=== PATIENT | female | born 1950 | race Caucasian/White ===

== ENCOUNTER → 2018-07-17 09:17 | Outpatient (CLI) | payer MEDICARE, SELFPAY ==
--- NOTE | 2018-07-17 09:21 | MM_ITS ---
MM Dig screening mamm BI w/CAD ORDERING PHYSICIAN : Jaun Brizuela MD PATIENT AGE: 67 years GENDER: Female COMPARISON: Previous screening bilateral mammogram August 2016, April 2014, April 2013 INDICATION: ITS.REASON: SCREENING noncontributory family history No hormones. No new complaints. Previous benign excisional biopsy left breast. TECHNIQUE: Standard CC and MLO images were obtained. R2 CAD reviewed. . Additional nipple profile cc and MLO view right breast FINDINGS: Low-density breast MRI scanner replacement. No significant change since prior studies. No dominant mass nor suspicious calcifications in either breast. The tiny nodular density at the central right breast is stable.. Ongoing Bilateral follow-up in one year recommended IMPRESSION: ... Stable negative mammogram. No significant new areas of concern. Fatty replacement bilaterally BI-RADS Category: 1 Negative RECOMMENDED FOLLOW-UP: 1YR 1 YEAR FOLLOW-UP (A letter has been sent to the patient regarding results of the study.)
--- NOTE | 2018-07-17 09:21 | XR_ITS ---
DEXA SCAN.-BONE DENSITY STUDY HIPS AND LUMBAR SPINE HISTORY: Postmenopausal female 67-year-old female hysterectomy. Diabetes TECHNIQUE: DEXA scan hip and lumbar spine The most complete data summary and color graphic presentation of the today's ( and any prior ) DEXA findings are available in PACS. Definition and treatment guidelines included. COMPARISON: None listed LUMBAR SPINE: Normal bone density overall L2 vertebral body demonstrates the lowest T score = 2.1 with BMD1.453 g/cm sq Overall mean lumbar L1-L4 T score = 2.8 with BMD1.513 g/cm sq . . HIPS: . Normal bone density bilaterally Femoral neck density is best predictor of hip fracture risk . Left femoral neck demonstrates the lowest T score 0.2 with BMD1.065 g/cm sq . Right femoral Neck T score 0.3 with BMD 1.087 Averaging all region yields today's Hip Mean T score 1.2 with BMD1.164 g/cm sq . IMPRESSION 1. LUMBAR SPINE: Normal/of abnormal bone density throughout all levels L-spine. Overall T score 2.8 at lumbar spine 2. HIPS: Normal bone density hips bilaterally Overall mean T score 1.2 at hips WHO criteria for post-menopausal, Women: Normal: T-score at or above -1 SD Osteopenia: T-score between -1 and -2.5 SD Osteoporosis: T-score at or below -2.5 SD
== END ==
PROVIDERS: Family Provider Family Medicine; PCP Family Medicine; Visit Provider Family Medicine
DX: Z12.31 Encounter for screening mammogram for malignant neoplasm of breast (principal); Z78.0 Asymptomatic menopausal state
CPT/HCPCS: 77067; 77080

== ENCOUNTER → 2019-09-13 10:47 | Outpatient (CLI) | payer MEDICARE, SELFPAY ==
--- NOTE | 2019-09-13 10:49 | MM_ITS ---
PROCEDURE: MM DIG SCREENING MAMM BI W/CAD Patient Age:69Y CLINICAL INDICATION: SCREENING Routine screening mammogram. No hormones but no new complaints. Noncontributory family history. Low-density breast with generalized fatty replacement COMPARISON: DIGMAMMS MAMMOGRAM SCREEN-[facility]IGHWAY ENGINEER N/C from 11/07/2006 DIGMAMMS MAMMOGRAM SCREEN-HIGHWAY ENGINEER N/C from 01/26/2008 [facility] DIGITAL MAMM-SCREEN BILATERAL from 09/15/2010 [facility] DIG MAMM-SCREEN VENITA from 04/30/2013 [facility] DIG MAMM-SCREEN VENITA from 05/06/2014 [facility] DIG MAMM-SCREEN VENITA from 09/02/2016 [facility] MM Dig screening mamm BI w/CAD from 07/17/2018 TECHNIQUE: Standard CC and MLO images were obtained. R2 CAD reviewed. Additional nipple profile CC views and MLO views bilaterally included FINDINGS: . Diffuse fatty replacement.. No dominant nor suspicious mass. No significant changes since previous studies. Bilateral follow-up 1 year adequate. Stable small benign appearing densities bilaterally with benign-appearing calcification. Follow-up 1 year adequate IMPRESSION: Stable bilateral mammogram. No areas of significant concern Diffuse fatty replacement/low-density breast . Bilateral follow-up the 1 year recommended BI-RAD Category : 2-benign findings The FOLLOW-UP: 1YR 1 Year Follow-up (A letter has been sent to the patient regarding results of the study.) Dictated by: Brandon Thompson MD 09/14/2019 10:09 Electronically signed by Brandon Thompson MD in [place] 09/14/2019 10:09
== END ==
PROVIDERS: PCP Family Medicine; Visit Provider Family Medicine
DX: Z12.31 Encounter for screening mammogram for malignant neoplasm of breast (principal)
CPT/HCPCS: 77067

== ENCOUNTER → 2020-06-06 09:22 | Outpatient (CLI) | payer MEDICARE, SELFPAY ==
[2020-06-06 09:43] LABS: Basophils % 0.5 % (0.1-2.0); Eosinophils # 0.4 K/mm3 (0.0-0.4); Eosinophils % 6.8 % (0.1-12.0); Hematocrit 39.4 % (37.0-47.0); Hemoglobin 13.1 g/dL (12.2-16.2); Lymphocytes # 2.3 K/mm3 (0.7-4.5); Lymphocytes % 36.6 % (10-50); Mean Corpuscular HGB Conc 33.4 g/dL (31.8-35.4); Mean Corpuscular Volume 92.9 fl (81-99); Mean Platelet Volume 7.1 fl (7.4-10.4); Monocytes # 0.3 K/mm3 (0.1-1.0); Monocytes % 5.1 % (1.7-9.3); Neutrophils # 3.1 K/mm3 (1.8-7.8); Neutrophils % 51.1 % (37.0-80.0); Platelet Count 184 K/mm3 (142-424); Red Blood Count 4.24 M/mm3 (4.20-5.40); Red Cell Distribution Width 14.1 % (11.5-17.5); White Blood Count 6.2 K/mm3 (4.8-10.8)
[2020-06-06 10:58] LABS: Alanine Aminotransferase 60 U/L (12-78); Albumin Level 4.2 g/dl (3.5-5.0); Albumin/Globulin Ratio 1.5 (1.1-1.8); Alkaline Phosphatase 131 U/L (38-126); Anion Gap 14.5 mEq/L (5-15); Aspartate Amino Transferase 74 U/L (14-36); Bilirubin,Total 0.7 mg/dl (0.2-1.3); Blood Urea Nitrogen 12 mg/dl (7-17); Calcium 9.8 mg/dl (8.4-10.2); Carbon Dioxide 28 mmol/L (22.0-30.0); Chloride 100 mmol/L (98-107); Chol/HDL Ratio 5.4 (1-3.5); Cholesterol 244 mg/dl (140-200); Estimated Glomerular Filt Rate 100 ml/min (>60); GFR (African American) 121 ML/MIN (>60); Globulin 2.8 g/dL (1.3-3.2); Glucose 326 mg/dl (74-100); HDL Cholesterol 45 mg/dl (40-60); Potassium 4.5 mmoL/L (3.5-5.1); Sodium 138 mmol/L (136-145); Triglycerides 372 mg/dl (30-150); VLDL Cholesterol 74 mg/dL (0-40)
[2020-06-06 11:09] LABS: Direct LDL Cholesterol 131.25 mg/dL (100-129)
[2020-06-06 11:15] LABS: 25-OH Vitamin D, Total 24.2 ng/mL (30-100)
[2020-06-06 11:29] LABS: Thyroid Stimulating Hormone 2.77 uIU/mL (0.465-4.68)
[2020-06-06 11:36] LABS: Hemoglobin A1C 9.4 % (4.0-6.0)
== END ==
PROVIDERS: Visit Provider Family Medicine
DX: E11.9 Type 2 diabetes mellitus without complications (principal); E78.5 Hyperlipidemia, unspecified; E55.9 Vitamin D deficiency, unspecified; Z79.4 Long term (current) use of insulin
CPT/HCPCS: 36415; 80053; 80061; 82306; 83036; 84443; 85025

== ENCOUNTER → 2020-09-01 10:20 | Outpatient (CLI) | payer MEDICARE, SELFPAY ==
[2020-09-01 13:52] LABS: Coronavirus 19 IgG Antibody Negative (Negative); Coronavirus 19 IgM Antibody Negative (Negative)
== END ==
PROVIDERS: Visit Provider Ophthalmology
DX: Z01.818 Encounter for other preprocedural examination (principal); Z98.42 Cataract extraction status, left eye
CPT/HCPCS: 36415; 86328

== ENCOUNTER 2020-09-02 06:20 | Day surgery (SDC) | payer MEDICARE, SELFPAY ==
[2020-08-26 13:35] VITALS: BMI 46.0
[2020-09-02 06:43] VITALS: BP 153/72; PULSE 87; RESP 18; TEMP 36.3; O2SAT 94
[2020-09-02 07:54] LABS: POC Glucose,Bedside 171 (70-110)
[2020-09-02 08:25] VITALS: BP 163/68; PULSE 80; RESP 16; O2SAT 99
[2020-09-02 08:30] VITALS: BP 131/63; PULSE 80; RESP 16; O2SAT 99
[2020-09-02 08:35] VITALS: BP 133/59; PULSE 81; RESP 16; O2SAT 99
[2020-09-02 08:38] VITALS: BP 130/74; PULSE 84; RESP 16; TEMP 36.1; O2SAT 97
== END 2020-09-02 08:45 | disposition home or self-care (01) ==
LOC: OR 06:22
PROVIDERS: PCP Family Medicine; Visit Provider Ophthalmology
DX: H25.812 Combined forms of age-related cataract, left eye (principal); Z96.1 Presence of intraocular lens; H26.491 Other secondary cataract, right eye; E11.9 Type 2 diabetes mellitus without complications; E78.5 Hyperlipidemia, unspecified; M19.90 Unspecified osteoarthritis, unspecified site; Z88.0 Allergy status to penicillin; Z88.2 Allergy status to sulfonamides; Z79.84 Long term (current) use of oral hypoglycemic drugs; Z79.4 Long term (current) use of insulin; Z79.899 Other long term (current) drug therapy
CPT/HCPCS: 66984; 82962; V2632

== ENCOUNTER → 2021-02-17 08:55 | Outpatient (POV) | payer MEDICARE, SELFPAY | PROVIDERS: Visit Provider Dermatology | DX: Z00.00 Encounter for general adult medical examination without abnormal findings (principal) ==

== ENCOUNTER → 2021-08-11 09:40 | Outpatient (CLI) | payer MEDICARE, SELFPAY ==
[2021-08-11 10:22] LABS: Hemoglobin A1C 11.3 % (4.0-6.0)
[2021-08-11 11:00] LABS: Alanine Aminotransferase 38 U/L (12-78); Albumin/Globulin Ratio 1.5 (1.1-1.8); Alkaline Phosphatase 75 U/L (38-126); Anion Gap 10.3 mEq/L (5-15); Aspartate Amino Transferase 49 U/L (14-36); Bilirubin,Total 0.5 mg/dl (0.2-1.3); Blood Urea Nitrogen 8 mg/dl (7-17); Calcium 9.8 mg/dl (8.4-10.2); Carbon Dioxide 30 mmol/L (22.0-30.0); Chloride 106 mmol/L (98-107); Cholesterol 143 mg/dl (140-200); Estimated Glomerular Filt Rate 99 ml/min (>60); GFR (African American) 120 ML/MIN (>60); Globulin 2.6 g/dL (1.3-3.2); Glucose 86 mg/dl (74-100); HDL Cholesterol 72 mg/dl (40-60); Potassium 5.3 mmoL/L (3.5-5.1); Sodium 141 mmol/L (136-145); Total Protein,Serum 6.6 g/dl (6.3-8.2); Triglycerides 105 mg/dl (30-150); VLDL Cholesterol 21 mg/dL (0-40)
[2021-08-11 11:11] LABS: Direct LDL Cholesterol 51.69 mg/dL (100-129)
== END ==
PROVIDERS: Visit Provider Family Medicine
DX: E11.9 Type 2 diabetes mellitus without complications (principal); E78.5 Hyperlipidemia, unspecified; Z79.4 Long term (current) use of insulin
CPT/HCPCS: 36415; 80053; 80061; 83036

== ENCOUNTER → 2021-08-26 07:47 | Outpatient (CLI) | payer MEDICARE, SELFPAY ==
--- NOTE | 2021-08-26 07:54 | MM_ITS ---
PROCEDURE INFORMATION: Exam: MG Bilateral Screening 3D Mammography Exam date and time: 08/26/2021 7:54 AM Age: 71 years old Clinical indication: Screening mammogram TECHNIQUE: Imaging protocol: Bilateral screening tomosynthesis and 2D mammography including computer-aided detection (CAD) when performed. COMPARISON: 1. MG MM DIG SCREENING MAMM BI W/CAD 09/13/2019 11:30 AM 2. MG [facility] MM Dig screening mamm BI w/CAD 07/17/2018 9:33 AM 3. MG [facility] DIG MAMM-SCREEN VENITA 09/02/2016 10:22 AM 4. MG [facility] DIG MAMM-SCREEN VENITA 05/06/2014 9:22 AM FINDINGS: MAMMOGRAPHY: Breast composition: There are scattered areas of fibroglandular density. Mass: None. Architectural distortion: No new or suspicious architectural distortion. Calcifications: Stable benign-appearing calcifications are present. No new or suspicious cluster of microcalcifications have developed. Asymmetric density: No new or suspicious asymmetric density is present Skin thickening: None. Axillary adenopathy: None. IMPRESSION: No mammographic evidence of malignancy. Recommend annual screening mammography unless otherwise clinically indicated. ASSESSMENT: BI-RADS category 2: Benign
--- NOTE | 2021-08-26 07:55 | XR_ITS ---
PROCEDURE: XR DEXA AXIAL SKELETON CLINICAL HISTORY: POST MENOPAUSAL COMPARISON: CR,DX DEXAAX XR DEXA axial skeleton from 07/17/2018 FINDINGS: The right hip BMD is 0.901 with a T-score of 0.5. The left hip BMD is 1.100 with a T-score of 1.3. The lumbar spine BMD is 1.289 with a T-score of 2.2. Previously the lowest density was and left femoral neck with a T-score of 0.2 IMPRESSION: This patient is considered normal according to the World Health Organization criteria. Fracture risk is low. Based on these results a follow-up exam is recommended in 2 year. Dictated by: Loy Thrasher MD 08/26/2021 13:51 Loy Thrasher MD in [place] 08/26/2021 13:51
== END ==
PROVIDERS: PCP Family Medicine; Visit Provider Family Medicine
DX: Z12.31 Encounter for screening mammogram for malignant neoplasm of breast (principal); Z78.0 Asymptomatic menopausal state
CPT/HCPCS: 77063; 77067; 77080

== ENCOUNTER → 2021-09-03 12:53 | Outpatient (CLI) | payer MEDICARE, SELFPAY ==
--- NOTE | 2021-09-03 12:59 | XR_ITS ---
PROCEDURE: XR CHEST PORTABLE CLINICAL HISTORY: COVID OUTPATIENT COMPARISON: CR CXR CHEST(2 VIEWS-NOT PORTABLE) from 03/11/2015 FINDINGS: The cardiomediastinal silhouette and pulmonary vascularity are within normal limits. The lungs are clear without infiltrates, suspicious nodules, or pleural effusions. Minimal atelectatic changes right lower lobe. No acute bony abnormalities. IMPRESSION: Mild right lower lobe atelectasis otherwise negative Dictated by: Loy Thrasher MD 09/03/2021 13:26 Loy Thrasher MD in [place] 09/03/2021 13:26
[2021-09-03 13:14] LABS: Coronavirus 19, PCR Not Detected (NotDetected); Influenza A, PCR Not Detected (NotDetected); Influenza B, PCR Not Detected (NotDetected)
[2021-09-03 13:21] LABS: Basophils # 0.1 K/mm3 (0-0.2); Basophils % 1.3 % (0.1-2.0); Eosinophils # 0.6 K/mm3 (0.0-0.4); Eosinophils % 8.2 % (0.1-12.0); Hematocrit 41.6 % (37.0-47.0); Hemoglobin 13.6 g/dL (12.2-16.2); Lymphocytes # 2.9 K/mm3 (0.7-4.5); Lymphocytes % 39.4 % (10-50); Mean Corpuscular HGB Conc 32.6 g/dL (31.8-35.4); Mean Corpuscular Volume 89.1 fl (81-99); Mean Platelet Volume 7.1 fl (7.4-10.4); Monocytes # 0.4 K/mm3 (0.1-1.0); Monocytes % 5.2 % (1.7-9.3); Neutrophils # 3.4 K/mm3 (1.8-7.8); Neutrophils % 45.9 % (37.0-80.0); Platelet Count 244 K/mm3 (142-424); Red Blood Count 4.67 M/mm3 (4.20-5.40); Red Cell Distribution Width 14.5 % (11.5-17.5); White Blood Count 7.3 K/mm3 (4.8-10.8)
== END ==
PROVIDERS: PCP Family Medicine; Visit Provider Family Medicine
DX: Z20.822 Contact with and (suspected) exposure to COVID-19 (principal); J06.9 Acute upper respiratory infection, unspecified
CPT/HCPCS: 36415; 71045; 85025; C9803; U0003; U0005

== ENCOUNTER → 2021-10-26 10:56 | Outpatient (CLI) | payer MEDICARE, SELFPAY | PROVIDERS: Visit Provider Surgery | DX: Z01.812 Encounter for preprocedural laboratory examination (principal); Z11.52 Encounter for screening for COVID-19; Z12.11 Encounter for screening for malignant neoplasm of colon; R19.5 Other fecal abnormalities | CPT/HCPCS: C9803; U0003; U0005 ==

== ENCOUNTER 2021-10-28 06:57 | Day surgery (SDC) | payer MEDICARE, SELFPAY ==
[2021-10-23 14:01] VITALS: BMI 44.2
[2021-10-28 07:16] VITALS: BP 171/98; PULSE 74; RESP 18; TEMP 36.4; O2SAT 98
--- NOTE | 2021-10-28 07:43 | P.PN_ITS ---
[facility] Anesthesia Checklist - Structural Data Admitted From: Home Planned Operative Procedure/s: colonoscopy Consent for Planned Operative Procedure(s) Verified: Yes - Airway Assessment C-Spine Mobility Assessed: Yes TMJ Mobility Assessed: Yes Dentition: Poor Dentition - Neurological Assessment Level of Consciousness: Awake, Alert, Appropriate - Anesthesia Plan Anesthesia Risk discussed: Yes Anesthesia Plan: Verified ASA Class: III Anesthesia Type: MAC [facility] History I have reviewed the patient's past medical history: Yes Medical History: Reports:: Diabetes Mellitus Type 2 Denies:: Cancer, Diabetes Mellitus Type 1, Internal Pacemaker, MRSA, Seizures *Have you ever received a pneumonia vaccine?: Yes *Have you received a flu vaccine this season?: Yes Anesthesia experience/problems:: none Laterality Cases: Right: Arthroscopy Knee Other Surgeries: No: Pacemaker Amputation: No Fractures: No - *Social History Last grade of school completed: High school graduate Smoking Status: Never smoker Alcohol Intake: never Substance Use Type: denies use *Occupational Status:: retired Housing: house Household Members: spouse *Travel in the last 8 weeks: None Family Hx:: Cancer, Diabetes
[2021-10-28 07:52] VITALS: O2SAT 98
[2021-10-28 09:02] VITALS: BP 100/54; PULSE 68; RESP 18; TEMP 36.3; O2SAT 92
--- NOTE | 2021-10-28 09:02 | HMH.SCOPE ---
- Procedure: Date: 10/28/21 Patient Date of :: 1950 Procedure Performed:: Total colonoscopy with numerous polypectomy Indications:: 71-year-old female who resides between [facility] [place] referred by Floyd Brizuela for colonoscopy due to positive Cologuard. Patient does not recall previous colonoscopy but review of the record does reveal a colonoscopy about [address] Long revealing hemorrhoids and hyperplastic polyp. Performing Provider:: Yovani Kwon MD Referring Provider:: Floyd Brizuela MD Sedation:: MAC sedation Procedure:: Patient was taken to endoscopy procedure room. She was positioned in lateral decubitus position. Adequate intravenous sedation was achieved with anesthesia titration of propofol. Digital examination revealed some minimal hemorrhoids. Variable stiffness Olympus colonoscope was inserted via the anus. It was advanced to the cecum. Colonic preparation was fair to good. Ileocecal valve and appendiceal orifice were clearly identified. She had some diverticuli in the cecum. There were multiple large right colon polyps. Most of these were removed with cutting snare. 1 diminutive polyp along the ridge was removed with biopsy forceps. There was some minor oozing from one of the larger polyp stalks and Hemoclip was deployed. A couple of these measured at least 12 to 15 mm. In the proximal transverse colon there were a couple of polyps removed with cutting snare. The distal transverse colon was a small polyp removed with cutting snare. In the descending colon there is a polyp removed with cutting snare. There is a relatively large polyp in the sigmoid colon at 40 cm. This was removed with cutting snare. There was some minor oozing from the polypectomy site and several hemoclips were deployed for good hemostasis. In the rectosigmoid region there was a hyperplastic appearing polyp as well as 2 additional adenomatous appearing polyps. Hyperplastic polyp was removed with forceps and adenomatous polyps removed with cutting snare. Retroflexion revealed minimal internal hemorrhoids. Findings:: Multiple polyps, several quite large measuring 12 to 15 mm. Total of 13 polyps were removed. Scattered diverticuli with diverticuli in the cecum. Recommendations:: Follow-up colonoscopy pending pathology but likely no more than 2 years given the large amount of large adenomatous polyps Complications:: None immediately apparent Estimated blood obtained (mL): 7
[2021-10-28 09:12] VITALS: BP 110/65; PULSE 68; RESP 18; O2SAT 94
[2021-10-28 09:22] VITALS: BP 113/62; PULSE 68; RESP 18; O2SAT 97
[2021-10-28 09:33] VITALS: BP 119/67; PULSE 68; RESP 18; O2SAT 98
[2022-07-22 10:55] LABS: POC Glucose,Bedside 145 (70-110)
== END 2021-10-28 09:37 | disposition home or self-care (01) ==
LOC: OUTP 06:58
PROVIDERS: PCP Family Medicine; Visit Provider Surgery
PROC: 0DJD8ZZ Inspection of Lower Intestinal Tract, Via Natural or Artificial Opening Endoscopic (ICD-10-PCS; principal; 2021-10-28 08:00)
DX: K63.5 Polyp of colon (principal); K57.30 Diverticulosis of large intestine without perforation or abscess without bleeding; E11.9 Type 2 diabetes mellitus without complications; Z80.9 Family history of malignant neoplasm, unspecified; Z83.3 Family history of diabetes mellitus; Z88.0 Allergy status to penicillin; Z88.2 Allergy status to sulfonamides; Z91.048 Other nonmedicinal substance allergy status; Z79.84 Long term (current) use of oral hypoglycemic drugs; Z79.4 Long term (current) use of insulin; Z79.899 Other long term (current) drug therapy
CPT/HCPCS: 45380; 45385; 82962; 88305

== ENCOUNTER → 2022-08-31 16:06 | Outpatient (CLI) | payer MEDICARE, SELFPAY ==
--- NOTE | 2022-08-31 16:13 | XR_ITS ---
FINAL REPORT CLINICAL HISTORY: PAIN down both legs and in back FINDINGS: LUMBAR SPINE Three views were obtained. There is no acute fracture. There is 15 degrees of lumbar scoliosis convex to the left. There is minimal spondylolisthesis of L4 on L5. There is moderate disc space narrowing L1-2 through L4-5. There is no soft tissue abnormality. IMPRESSION: Moderate hypertrophic changes of degenerative disc disease throughout. Minimal spondylolisthesis of L4 on L5. Reviewed, Interpreted and Dictated by Charlie Tay MD Transcribed by Gina Spann Authenticated and [facility]
== END ==
PROVIDERS: PCP Family Medicine; Visit Provider Family Medicine
DX: M53.3 Sacrococcygeal disorders, not elsewhere classified (principal)
CPT/HCPCS: 72100

== ENCOUNTER → 2023-01-05 09:12 | Outpatient (CLI) | payer MEDICARE, SELFPAY ==
[2023-01-05 10:43] LABS: Alanine Aminotransferase 44 U/L (12-78); Albumin Level 4.4 g/dl (3.5-5.0); Albumin/Globulin Ratio 1.8 (1.1-1.8); Alkaline Phosphatase 119 U/L (38-126); Anion Gap 12.9 mEq/L (5-15); Aspartate Amino Transferase 59 U/L (14-36); Bilirubin,Total 0.8 mg/dl (0.2-1.3); Blood Urea Nitrogen 8 mg/dl (7-17); Calcium 8.8 mg/dl (8.4-10.2); Carbon Dioxide 27 mmol/L (22.0-30.0); Chloride 101 mmol/L (98-107); Chol/HDL Ratio 9.7 (1-3.5); Cholesterol 281 mg/dl (140-200); Estimated Glomerular Filt Rate 83 ml/min (>60); GFR (African American) 100 ML/MIN (>60); Globulin 2.4 g/dL (1.3-3.2); Glucose 379 mg/dl (74-100); HDL Cholesterol 29 mg/dl (40-60); Potassium 4.9 mmoL/L (3.5-5.1); Sodium 136 mmol/L (136-145); Total Protein,Serum 6.8 g/dl (6.3-8.2)
[2023-01-05 10:44] LABS: Triglycerides 417 mg/dl (30-150)
[2023-01-05 10:54] LABS: Direct LDL Cholesterol 159.64 mg/dL (100-129)
[2023-01-05 11:00] LABS: 25-OH Vitamin D, Total 19.8 ng/mL (30-100)
[2023-01-05 11:08] LABS: Hemoglobin A1C 12.4 % (4.0-6.0)
== END ==
PROVIDERS: PCP Family Medicine; Visit Provider Family Medicine
DX: E11.9 Type 2 diabetes mellitus without complications (principal); E55.9 Vitamin D deficiency, unspecified; E78.5 Hyperlipidemia, unspecified; Z79.4 Long term (current) use of insulin
CPT/HCPCS: 36415; 80053; 80061; 82306; 83036

== ENCOUNTER → 2023-01-13 10:44 | Outpatient (CLI) | payer MEDICARE, SELFPAY ==
--- NOTE | 2023-01-13 10:50 | MM_ITS ---
PROCEDURE INFORMATION: Exam: MG Bilateral Screening 3D Mammography Exam date and time: 01/13/2023 10:42 AM Age: 72 years old Clinical indication: Screening. No family history of breast cancer. Possible history of an excisional biopsy. TECHNIQUE: Imaging protocol: Bilateral Screening tomosynthesis and 2D mammography including computer-aided detection (CAD) when performed. COMPARISON: 1. MG MM DIG SCREENING MAMM BI W/CAD 08/26/2021 8:01 AM 2. MG MM DIG SCREENING MAMM BI W/CAD 09/13/2019 11:30 AM 3. MG [facility] MM Dig screening mamm BI w/CAD 07/17/2018 9:33 AM 4. MG [facility] DIG MAMM-SCREEN VENITA 09/02/2016 10:22 AM FINDINGS: MAMMOGRAPHY: Breast composition: There are scattered areas of fibroglandular density. Mass: No suspicious mass. Architectural distortion: None. Calcifications: No suspicious calcifications. Asymmetric density: None. Skin thickening: None. Axillary adenopathy: None. IMPRESSION: No mammographic evidence of malignancy. Annual screening is recommended unless otherwise clinically indicated. ASSESSMENT: BI-RADS Category 1: Negative
== END ==
PROVIDERS: PCP Family Medicine; Visit Provider Family Medicine
DX: Z12.31 Encounter for screening mammogram for malignant neoplasm of breast (principal)
CPT/HCPCS: 77063; 77067

== ENCOUNTER 2023-04-29 09:16 | Day surgery (SDC) | payer MEDICARE, SELFPAY ==
[2023-04-27 12:10] VITALS: BMI 43.0
[2023-04-29 09:42] VITALS: BP 116/69; PULSE 74; RESP 18; TEMP 36.1; O2SAT 94
--- NOTE | 2023-04-29 09:43 | EXP.ANES.CKL ---
[facility] Disclaimer: The information contained in this section may have been updated after the patient was seen, as this information can be updated by other users. Medical History Diabetes mellitus, type 2 Glaucoma Hyperlipidemia Surgical History H/O right knee surgery History of section Family History Other Family history of diabetes mellitus type II Social History Smoking Status: Former smoker second hand exposure: No alcohol intake: never substance use type: denies use current occupational status: retired Travel in the last 8 weeks: None household members: spouse housing: house current occupational exposures/hazards: No caffeine: Yes [facility] Anesthesia Checklist Patient Identification Patient Identification: Arm Band and Verbal (Name & ) Structural Data Admitted From: Home Planned Operative Procedure/s: Colonoscopy Consent for Planned Operative Procedure(s) Verified: Yes Verified Documents: Surgical Consent and History and Physical NPO Status Verified Time NPO: 06:00 Additional verifications Fingerstick Blood Glucose: 148 Airway Assessment C-Spine Mobility Assessed: Yes TMJ Mobility Assessed: Yes Dentition: Good Dentition Neurological Assessment Level of Consciousness: Awake and Alert Anesthesia Plan Anesthesia Risk discussed: Yes ASA Class: II Anesthesia Type: MAC
[2023-04-29 09:56] LABS: POC Glucose,Bedside 148 (70-110)
[2023-04-29 10:12] VITALS: O2SAT 99
--- NOTE | 2023-04-29 10:44 | HMH.SCOPE ---
Procedure: Date: 04/29/23 Patient Date of :: 1950 Procedure Performed:: Total colonoscopy with polypectomy using biopsy forceps Indications:: Patient is a 72-year-old female whom I had performed previous colonoscopy on 10/28/2021 due to positive Cologuard. At that time she had 13 or 14 adenomatous polyps several measuring at least 12 to 15 mm including numerous tubular adenomas and numerous sessile serrated adenomas as well as a sigmoid tubulovillous adenoma. Given the large number of complex large polyps plan was made for follow-up colonoscopy 1 year to ensure complete removal. Performing Provider:: Yovani Kwon MD Referring Provider:: Floyd Brizuela Sedation:: MAC sedation Procedure:: Patient history was obtained and appropriate physical examination was performed. Patient's medications and allergies were reviewed. Informed consent was obtained after explaining the benefits, alternatives, and risks of the procedure including, but not limited to, bleeding, perforation, missed lesions, and adverse reaction to anesthesia medications. Patient was transported to endoscopy procedure room. Patient was connected to monitoring devices. Throughout the procedure the patient's blood pressure, pulse, and oxygen saturations were monitored continuously. Patient identification and planned procedure were verified by the staff. Patient was positioned in lateral decubitus position. Digital anorectal exam was performed. Variable stiffness Olympus colonoscope was inserted and advanced under direct visualization to the cecum. Adequacy of the colonic preparation was noted. The colonoscope was advanced a short distance into the terminal ileum. The colonoscope was then slowly withdrawn while carefully examining the color, texture, anatomy, and integrity of the mucosoa circumferentially. Within the rectum retroflexion was performed. Colonoscope was then withdrawn. . . Colonic preparation was good. There was some pandiverticulosis. In the descending colon there was subtle probable early adenomatous polyp removed with cold biopsy forceps. In the rectosigmoid region there were a couple of small diminutive polyps removed with cold biopsy forceps. Findings:: Diverticulosis Diminutive polyps as noted above Recommendations:: Given prior history likely repeat colonoscopy in 3 years Complications:: None immediate Estimated blood obtained (mL): 1 Colonoscopy Component Colonoscopy Component Was a colonoscopy performed during today's procedure?: Yes Recommended follow up colonoscopy of at least 10 years?: No If no, follow up colonoscopy recommended in ___ years?: 3 Reason for not recommending >/= 10 yr follow-up interval?: Polyps
[2023-04-29 10:46] VITALS: BP 80/41; PULSE 79; RESP 16; TEMP 36.2; O2SAT 96
[2023-04-29 10:56] VITALS: BP 83/47; PULSE 80; RESP 16; O2SAT 95
[2023-04-29 11:06] VITALS: BP 98/64; PULSE 77; RESP 16; O2SAT 98
[2023-04-29 11:16] VITALS: BP 101/58; PULSE 78; RESP 16; O2SAT 98
== END 2023-04-29 11:16 | disposition home or self-care (01) ==
PROVIDERS: PCP Family Medicine; Visit Provider Surgery
PROC: 0DJD8ZZ Inspection of Lower Intestinal Tract, Via Natural or Artificial Opening Endoscopic (ICD-10-PCS; principal; 2023-04-29 10:30)
DX: Z12.11 Encounter for screening for malignant neoplasm of colon (principal); Z86.010 Personal history of colon polyps; K57.90 Diverticulosis of intestine, part unspecified, without perforation or abscess without bleeding; K63.5 Polyp of colon; E11.9 Type 2 diabetes mellitus without complications
CPT/HCPCS: 45380; 82962; 88305

== ENCOUNTER 2024-01-12 08:18 | Outpatient (CLI) | payer MEDICARE, SELFPAY ==
--- NOTE | 2024-01-12 08:26 | MM_ITS ---
PROCEDURE INFORMATION: Exam: MG Bilateral Screening 3D Mammography Exam date and time: 01/12/2024 8:18 AM Age: 73 years old Clinical indication: Screening examination TECHNIQUE: Imaging protocol: Bilateral Screening tomosynthesis and 2D mammography including computer-aided detection (CAD) when performed. COMPARISON: 1. MG MM DIG SCREENING MAMM BI W/CAD 01/13/2023 10:42 AM 2. MG MM DIG SCREENING MAMM BI W/CAD 08/26/2021 8:01 AM FINDINGS: MAMMOGRAPHY: Breast composition: The breasts are almost entirely fatty. Mass: None. Architectural distortion: None. Calcifications: No suspicious calcifications. Asymmetric density: None. Skin thickening: None. Axillary adenopathy: None. IMPRESSION: No mammographic evidence of malignancy. Annual screening is recommended unless otherwise clinically indicated. ASSESSMENT: BI-RADS Category 1: Negative
== END 2024-01-12 23:59 ==
LOC: RAD 08:18
PROVIDERS: PCP Family Medicine; Visit Provider Family Medicine
DX: Z12.31 Encounter for screening mammogram for malignant neoplasm of breast (principal)
CPT/HCPCS: 77063; 77067

== ENCOUNTER 2025-01-18 09:19 | Outpatient (CLI) | payer MEDICARE, SELFPAY ==
--- NOTE | 2025-01-18 09:22 | XR_ITS ---
FINAL REPORT TECHNIQUE: Bone densitometry calculations of the lumbar spine and left hip were obtained. CLINICAL HISTORY: SCREENING COMPARISON: None FINDINGS: Using L1-4, the bone mineral density of the spine is 1.318 g/cm2, corresponding to T-score of 2.5. Using the left hip, the bone mineral density of the femoral neck is 1.071 g/cm2, corresponding to a T-score of 2.0. Using the right hip, the bone mineral density of the femoral neck is 0.935 g/cm?, corresponding to a T-score of 0.8. NOTE: T-score: Standard deviation compared with peak bone mass of young adult mean. *Following the recommendations of the International Society of Bone densitometry, classification of hip BMD is based on the lower of two T-scores; total hip or femoral neck. IMPRESSION: Normal bone mineral density of the lumbar spine and bilateral hips. Reviewed, Interpreted and Dictated by Charlie Tay MD Transcribed by Terrie Soler Authenticated and [facility]
== END 2025-01-18 23:59 | disposition home or self-care (01) ==
LOC: RAD 09:19
PROVIDERS: PCP Family Medicine; Visit Provider Family Medicine
DX: Z78.0 Asymptomatic menopausal state (principal)
CPT/HCPCS: 77080

== ENCOUNTER 2025-03-01 14:54 | Outpatient (CLI) | payer MEDICARE, SELFPAY ==
--- OUTSIDE RECORDS SUMMARY | 2025-03-01 14:56 | XMS_ITS ---
Author Organization Unknown [facility] Start Date Provider Encounter for Check-up [phone] [facility]
--- NOTE | 2025-03-01 15:00 | MM_ITS ---
PROCEDURE INFORMATION: Exam: MG Bilateral Screening 3D Mammography Exam date and time: 03/01/2025 3:02 PM Age: 74 years old Clinical indication: Screening examination TECHNIQUE: Imaging protocol: Bilateral Screening tomosynthesis and 2D mammography including computer-aided detection (CAD) when performed. COMPARISON: 1. MG MM DIG SCREENING MAMM BI W/CAD 01/12/2024 8:18 AM 2. MG MM DIG SCREENING MAMM BI W/CAD 01/13/2023 10:42 AM FINDINGS: MAMMOGRAPHY: Breast composition: The breasts are almost entirely fatty. Mass: None. Architectural distortion: None. Calcifications: No suspicious calcifications. Asymmetric density: None. Skin thickening: None. Axillary adenopathy: None. IMPRESSION: No mammographic evidence of malignancy. Annual screening is recommended unless otherwise clinically indicated. ASSESSMENT: BI-RADS Category 1: Negative.
== END 2025-03-01 23:59 | disposition home or self-care (01) ==
LOC: RAD 14:55
PROVIDERS: PCP Family Medicine; Visit Provider Family Medicine
DX: Z12.31 Encounter for screening mammogram for malignant neoplasm of breast (principal)
CPT/HCPCS: 77063; 77067